=== PATIENT | female | born 1965 | race Caucasian/White ===

== ENCOUNTER 2019-09-23 12:32 | Emergency (ER) | payer MEDICAID ==
[~2019-09-23] VITALS: Ht 162.6 cm; Wt 183.0 kg
[~2019-09-23 12:32] MED LIST: CLON-528 PO; CYCL-394 PO; DEXL30CA3 PO; DOCU100C40 PO; ESCI20TA29 PO; ESTR0.3T10 PO; FAMO-128 PO; LEVO100T46 PO; MELO-82 PO; METF500T PO; METH60CP PO; MOME17SP NS; MONT10TA21 PO; PHEN-786 PO; TRAM50TA2 PO
[2019-09-23 12:35] VITALS: BP 140/97
[2019-09-23] MEDS ORDERED: triamcinolone acetonide 40mg/ml inj IM ONE (13:40)
[2019-09-23] MEDS ORDERED: KEN0.1O TP (13:44)
== END 2019-09-23 13:51 | disposition home or self-care (01) ==
LOC: ER 12:32
DX: S80.812A Abrasion, left lower leg, initial encounter (principal); S80.811A Abrasion, right lower leg, initial encounter; L30.9 Dermatitis, unspecified; R06.02 Shortness of breath; E11.9 Type 2 diabetes mellitus without complications; G89.29 Other chronic pain; E05.80 Other thyrotoxicosis without thyrotoxic crisis or storm; Z86.2 Personal history of diseases of the blood and blood-forming organs and certain disorders involving the immune mechanism; Z98.890 Other specified postprocedural states; Z91.018 Allergy to other foods; Z79.84 Long term (current) use of oral hypoglycemic drugs; Z79.899 Other long term (current) drug therapy; X58.XXXA Exposure to other specified factors, initial encounter; Y93.89 Activity, other specified; Y92.89 Other specified places as the place of occurrence of the external cause; Y99.8 Other external cause status
CPT/HCPCS: 96372; 99283; J3301

== ENCOUNTER 2019-09-28 19:31 | Emergency (ER) | payer MEDICAID ==
[~2019-09-28] VITALS: Ht 162.6 cm; Wt 89.0 kg
[~2019-09-28 19:31] MED LIST changes: +KEN0.1O TP
[2019-09-28] MEDS ORDERED: LORazepam 1 MG tablet PO ONE (20:10)
[2019-09-28] MEDS ORDERED: diphenhydrAMINE 25mg capsule PO ONE (20:10)
[2019-09-28] MEDS ORDERED: triamcinolone acetonide 40mg/ml inj IM ONE (21:00)
--- NOTE | 2019-09-28 21:13 | NUR ---
JASEN [phone]
[2019-09-28] MEDS ORDERED: DIPH25CA83 PO (21:26)
[2019-09-28 21:48] VITALS: BP 135/84
== END 2019-09-28 21:50 | disposition home or self-care (01) ==
LOC: ER 19:32
DX: L20.9 Atopic dermatitis, unspecified (principal); E11.9 Type 2 diabetes mellitus without complications; G89.29 Other chronic pain; F41.9 Anxiety disorder, unspecified; Z91.040 Latex allergy status; Z79.899 Other long term (current) drug therapy
CPT/HCPCS: 96372; 99283; J3301; Q0163

== ENCOUNTER 2020-07-25 15:22 | Emergency (ER) | payer MEDICAID ==
[~2020-07-25] VITALS: Ht 162.6 cm; Wt 75.5 kg
[~2020-07-25 15:22] MED LIST changes: +DIPH25CA83 PO; -KEN0.1O TP
[2020-07-25 16:10] LABS: BASOPHILS # (AUTO) 0.1 X10'3 (0-0.2); BASOPHILS % (AUTO) 1.4 % (0-1); EOSINOPHILS # (AUTO) 0.3 X10'3 (0-0.9); EOSINOPHILS % (AUTO) 5.2 % (0-6); HEMATOCRIT 31.6 % (35.0-45.0); HEMOGLOBIN 10.6 g/dl (12.0-16.0); LYMPHOCYTES # (AUTO) 1.7 X10'3 (1.1-4.8); MEAN CORPUSCULAR HEMOGLOBIN 28.8 PG (27.0-31.0); MEAN CORPUSCULAR HGB CONC 33.5 g/dL (33.0-36.5); MEAN CORPUSCULAR VOLUME 86.1 FL (78-98); MEAN PLATELET VOLUME 6.3 FL (7.4-10.4); MONOCYTES # (AUTO) 0.6 X10'3 (0-0.9); MONOCYTES % (AUTO) 9.4 % (2-12); NEUTROPHILS # (AUTO) 3.8 X10'3 (1.8-7.7); PLATELET COUNT 402 X10'3 (140-440); RED BLOOD COUNT 3.67 X10'6 (4.20-5.60); RED CELL DISTRIBUTION WIDTH 13.4 % (11.5-14.5); WHITE BLOOD COUNT 6.6 X10'3 (4.5-11.0)
[2020-07-25 16:26] LABS: ALANINE AMINOTRANSFERASE 27 U/L (12-78); ALBUMIN 3.3 G/DL (3.4-5.0); ALBUMIN/GLOBULIN RATIO 1.1 (1.1-1.5); ALKALINE PHOSPHATASE 69 IU/L (46-116); ANION GAP 7 (8-16); ASPARTATE AMINO TRANSFERASE 21 U/L (10-37); BILIRUBIN,TOTAL 0.2 MG/DL (0.1-1.0); BLOOD UREA NITROGEN 5 MG/DL (7-18); BUN/CREATININE RATIO 8.3 (6.6-38.0); CALCIUM 8.3 MG/DL (8.5-10.1); CHLORIDE 93 MMOL/L (99-107); GLUCOSE 80 MG/DL (70-104); POTASSIUM 3.5 MMOL/L (3.5-5.1); SODIUM 128 MMOL/L (135-145); TOTAL CARBON DIOXIDE 28.4 MMOL/L (24-32); TOTAL PROTEIN 6.4 G/DL (6.4-8.2); eGFR > 90 ML/MIN
[2020-07-25 17:37] VITALS: BP 153/87
== END 2020-07-25 17:39 | disposition home or self-care (01) ==
LOC: ER 15:23
DX: R10.13 Epigastric pain (principal); R07.89 Other chest pain; E87.1 Hypo-osmolality and hyponatremia; I10 Essential (primary) hypertension; E11.9 Type 2 diabetes mellitus without complications; E05.90 Thyrotoxicosis, unspecified without thyrotoxic crisis or storm; G89.29 Other chronic pain; F41.9 Anxiety disorder, unspecified; Z86.2 Personal history of diseases of the blood and blood-forming organs and certain disorders involving the immune mechanism; Z98.890 Other specified postprocedural states; Z91.040 Latex allergy status; Z79.899 Other long term (current) drug therapy
CPT/HCPCS: 36415; 71045; 80053; 83880; 84484; 85025; 93005; 99285

== ENCOUNTER 2020-09-28 15:32 | Emergency (ER) | payer MEDICAID ==
[~2020-09-28] VITALS: Ht 165.1 cm; Wt 72.0 kg
--- NOTE | 2020-09-28 15:50 | NUR ---
XRAYS ON HOLD UNTIL CT SCAN RESULTS PER DR ABRAHAM
--- NOTE | 2020-09-28 15:55 | NUR ---
TO [facility] W/ JANY BHANDARI ACCOMPANYING
[2020-09-28 16:04] LABS: BASOPHILS # (AUTO) 0.1 X10'3 (0-0.2); BASOPHILS % (AUTO) 0.9 % (0-1); EOSINOPHILS # (AUTO) 0.2 X10'3 (0-0.9); EOSINOPHILS % (AUTO) 2.3 % (0-6); HEMATOCRIT 32.6 % (35.0-45.0); HEMOGLOBIN 11.1 g/dl (12.0-16.0); LYMPHOCYTES # (AUTO) 1.5 X10'3 (1.1-4.8); LYMPHOCYTES % (AUTO) 21.6 % (21-51); MEAN CORPUSCULAR HGB CONC 34.1 g/dL (33.0-36.5); MEAN CORPUSCULAR VOLUME 85.1 FL (78-98); MEAN PLATELET VOLUME 6.8 FL (7.4-10.4); MONOCYTES # (AUTO) 0.6 X10'3 (0-0.9); MONOCYTES % (AUTO) 8.5 % (2-12); NEUTROPHILS # (AUTO) 4.8 X10'3 (1.8-7.7); NEUTROPHILS % (AUTO) 66.7 % (42-75); PLATELET COUNT 328 X10'3 (140-440); RED BLOOD COUNT 3.84 X10'6 (4.20-5.60); RED CELL DISTRIBUTION WIDTH 13.2 % (11.5-14.5); WHITE BLOOD COUNT 7.2 X10'3 (4.5-11.0)
[2020-09-28 16:14] LABS: PARTIAL THROMBOPLASTIN TIME 27 SECONDS (22-32)
[2020-09-28 16:16] LABS: ALANINE AMINOTRANSFERASE 35 U/L (12-78); ALBUMIN 3.3 G/DL (3.4-5.0); ALKALINE PHOSPHATASE 92 IU/L (46-116); ANION GAP 12 (8-16); ASPARTATE AMINO TRANSFERASE 28 U/L (10-37); BILIRUBIN,TOTAL 0.2 MG/DL (0.1-1.0); BLOOD UREA NITROGEN 6 MG/DL (7-18); BUN/CREATININE RATIO 8.1 (6.6-38.0); CALCIUM 8.3 MG/DL (8.5-10.1); CHLORIDE 88 MMOL/L (99-107); CREATININE 0.74 MG/DL (0.40-0.90); GLUCOSE 97 MG/DL (70-104); POTASSIUM 3.9 MMOL/L (3.5-5.1); SODIUM 122 MMOL/L (135-145); TOTAL CARBON DIOXIDE 22.3 MMOL/L (24-32); TOTAL PROTEIN 6.7 G/DL (6.4-8.2); eGFR 82 ML/MIN
--- NOTE | 2020-09-28 16:21 | NUR ---
Discussed pt's c/o pain with edmd hernandez; new order for zofran, morphine and ns bolus received.
[2020-09-28 16:25] LABS: CREATINE KINASE 102 U/L (26-192); TROPONIN I < 0.04 NG/ML (0.0-0.05)
[2020-09-28] MEDS ORDERED: ondansetron/PF 4mg/2ml inj IV ONE (16:25)
[2020-09-28] MEDS ORDERED: morphine 4 MG/ML inj SYRINge IV ONE ×2 (16:25→17:50)
[2020-09-28] MEDS ORDERED: normal saline 1000ml 1,000 ML IV ONE (16:25)
--- NOTE | 2020-09-28 16:35 | NUR ---
ok to remove c-collar, per edmd hernandez. poc includes transfer to higher level of care
--- NOTE | 2020-09-28 16:37 | NUR ---
Pt requested her son, Andrew be contacted, but didn't have phone. called pt's mother Sandy who provided Andrew' number: [phone].
[2020-09-28] MEDS ORDERED: TETanus/Pertussis (Acell)/Diphther VAC/PF (Tdap-Adult) 0.5ml syringe IMVAC ONE (16:45)
[2020-09-28] MEDS ORDERED: LIDOcaine 1% W/epiNEPHrine 1:200,000 10ml vial IJ ONE (16:45)
[2020-09-28 17:45] VITALS: BP 176/100
--- NOTE | 2020-09-28 18:29 | NUR ---
Gave report to Neuroscience unit at [facility], understanding verbalized, no further questions at this time.
== END 2020-09-28 18:34 | disposition short-term general hospital (02) ==
LOC: ER 15:32
DX: S32.019A Unspecified fracture of first lumbar vertebra, initial encounter for closed fracture (principal); S01.91XA Laceration without foreign body of unspecified part of head, initial encounter; S13.4XXA Sprain of ligaments of cervical spine, initial encounter; S06.0X0A Concussion without loss of consciousness, initial encounter; R51.9 Headache, unspecified; R53.1 Weakness; D53.9 Nutritional anemia, unspecified; I10 Essential (primary) hypertension; E11.9 Type 2 diabetes mellitus without complications; E05.90 Thyrotoxicosis, unspecified without thyrotoxic crisis or storm; G89.29 Other chronic pain; F41.9 Anxiety disorder, unspecified; Z20.3 Contact with and (suspected) exposure to rabies; Z86.2 Personal history of diseases of the blood and blood-forming organs and certain disorders involving the immune mechanism; Z98.890 Other specified postprocedural states; Z91.040 Latex allergy status; Z79.899 Other long term (current) drug therapy; W11.XXXA Fall on and from ladder, initial encounter; Y93.89 Activity, other specified; Y92.89 Other specified places as the place of occurrence of the external cause; Y99.8 Other external cause status
CPT/HCPCS: 36415; 51702; 70450; 72125; 72128; 72131; 80053; 82550; 83874; 84484; 85025; 85610; 85730; 90471; 90715; 93005; 96361; 96374; 96375; 96376; 99291; J2270; J2405; J7030

== ENCOUNTER 2021-03-27 18:25 | Emergency (ER) | payer MEDICAID ==
[~2021-03-27] VITALS: Ht 167.6 cm; Wt 67.3 kg
[2021-03-27] MEDS ORDERED: normal saline 1000ML IV soln IVB ONE (19:40)
[2021-03-27 20:10] LABS: CLARITY,URINE CLEAR (Clear); COLOR,URINE STRAW (Yellow); GLUCOSE, URINE NEGATIVE (Neg); KETONES,URINE NEGATIVE (Neg); LEUKOCYTE ESTERASE ,URINE NEGATIVE (Neg); NITRITES, URINE NEGATIVE (Neg); OCCULT BLOOD,URINE NEGATIVE (Neg); PROTEIN,URINE NEGATIVE (Neg); UA COLLECTION TYPE CLN CATCH MIDSTREAM; UROBILINOGEN,URINE 0.2 E.U/dL (0.2-1.0)
[2021-03-27 20:27] LABS: BASOPHILS # (AUTO) 0.1 X10'3 (0-0.2); BASOPHILS % (AUTO) 0.5 % (0-1); EOSINOPHILS # (AUTO) 0.1 X10'3 (0-0.9); EOSINOPHILS % (AUTO) 0.8 % (0-6); HEMATOCRIT 28.8 % (35.0-45.0); HEMOGLOBIN 9.5 g/dl (12.0-16.0); LYMPHOCYTES # (AUTO) 0.9 X10'3 (1.1-4.8); LYMPHOCYTES % (AUTO) 6.6 % (21-51); MEAN CORPUSCULAR HEMOGLOBIN 27.1 PG (27.0-31.0); MEAN CORPUSCULAR HGB CONC 33.1 g/dL (33.0-36.5); MEAN CORPUSCULAR VOLUME 81.7 FL (78-98); MEAN PLATELET VOLUME 6.5 FL (7.4-10.4); MONOCYTES % (AUTO) 7.3 % (2-12); NEUTROPHILS # (AUTO) 11.3 X10'3 (1.8-7.7); NEUTROPHILS % (AUTO) 84.8 % (42-75); PLATELET COUNT 370 X10'3 (140-440); RED BLOOD COUNT 3.52 X10'6 (4.20-5.60); RED CELL DISTRIBUTION WIDTH 17.2 % (11.5-14.5); WHITE BLOOD COUNT 13.3 X10'3 (4.5-11.0)
[2021-03-27 20:43] LABS: ALANINE AMINOTRANSFERASE 25 U/L (12-78); ALBUMIN 2.6 G/DL (3.4-5.0); ALBUMIN/GLOBULIN RATIO 0.7 (1.1-1.5); ALKALINE PHOSPHATASE 64 IU/L (46-116); ANION GAP 11 (8-16); ASPARTATE AMINO TRANSFERASE 22 U/L (10-37); BILIRUBIN,TOTAL 0.2 MG/DL (0.1-1.0); BLOOD UREA NITROGEN 11 MG/DL (7-18); BUN/CREATININE RATIO 14.9 (6.6-38.0); CALCIUM 7.5 MG/DL (8.5-10.1); CHLORIDE 93 MMOL/L (99-107); CREATININE 0.74 MG/DL (0.40-0.90); GLUCOSE 112 MG/DL (70-104); POTASSIUM 3.2 MMOL/L (3.5-5.1); SODIUM 127 MMOL/L (135-145); TOTAL PROTEIN 6.1 G/DL (6.4-8.2); eGFR 82 ML/MIN
[2021-03-27] MEDS ORDERED: potassium Cl 20 mEq SR tablet PO STA (20:46)
[2021-03-27 21:11] VITALS: BP 128/75
== END 2021-03-27 21:13 | disposition home or self-care (01) ==
LOC: ER 18:25
DX: E11.649 Type 2 diabetes mellitus with hypoglycemia without coma (principal); E87.0 Hyperosmolality and hypernatremia; E87.6 Hypokalemia; E86.0 Dehydration; R41.82 Altered mental status, unspecified; R53.83 Other fatigue; I10 Essential (primary) hypertension; E11.9 Type 2 diabetes mellitus without complications; E05.90 Thyrotoxicosis, unspecified without thyrotoxic crisis or storm; G89.29 Other chronic pain; Z86.2 Personal history of diseases of the blood and blood-forming organs and certain disorders involving the immune mechanism; Z98.890 Other specified postprocedural states; Z91.040 Latex allergy status; Z79.899 Other long term (current) drug therapy
CPT/HCPCS: 36415; 80053; 81003; 82948; 85025; 93005; 99284; J7030

== ENCOUNTER 2021-05-01 13:41 | Inpatient (IN) | payer MEDICAID ==
[~2021-05-01] VITALS: Ht 162.6 cm; Wt 75.2 kg
[~2021-05-01 13:41] MED LIST changes: -MOME17SP NS; +MOME17SP5 NS
[2021-05-01] MEDS ORDERED: FOSphenytoin 500mg inj. 1,000 MG in normal saline 100ml IV soln 80 ML IV ONE (15:10)
[2021-05-01] MEDS ORDERED: normal saline 1000ML IV soln IVB ONE (15:10)
[2021-05-01] MEDS ORDERED: LORazepam 2 mg/ml vial IV ONE ×2 (15:10→15:40)
[2021-05-01] MEDS ORDERED: FOSphenytoin 500mg inj. 1,000 MG in normal saline 100ml IV soln 100 ML IV ONE (15:26)
[2021-05-01 15:39] LABS: ALANINE AMINOTRANSFERASE 28 U/L (12-78); ALBUMIN 3.3 G/DL (3.4-5.0); ALBUMIN/GLOBULIN RATIO 0.8 (1.1-1.5); ALKALINE PHOSPHATASE 89 IU/L (46-116); ANION GAP 12 (8-16); ASPARTATE AMINO TRANSFERASE 33 U/L (10-37); BILIRUBIN,TOTAL 0.4 MG/DL (0.1-1.0); BLOOD UREA NITROGEN 4 MG/DL (7-18); BUN/CREATININE RATIO 5.3 (6.6-38.0); CALCIUM 7.5 MG/DL (8.5-10.1); CHLORIDE 65 MMOL/L (99-107); CREATININE 0.76 MG/DL (0.40-0.90); GLUCOSE 127 MG/DL (70-104); TOTAL PROTEIN 7.4 G/DL (6.4-8.2); eGFR 79 ML/MIN
[2021-05-01 15:46] LABS: POTASSIUM 1.7 MMOL/L (3.5-5.1); SODIUM 102 MMOL/L (135-145)
[2021-05-01 15:53] LABS: BASOPHILS % (AUTO) 0.4 % (0-1); EOSINOPHILS % (AUTO) 0.3 % (0-6); HEMATOCRIT 33.2 % (35.0-45.0); HEMOGLOBIN 11.2 g/dl (12.0-16.0); LYMPHOCYTES # (AUTO) 0.9 X10'3 (1.1-4.8); MEAN CORPUSCULAR HEMOGLOBIN 27.4 PG (27.0-31.0); MEAN CORPUSCULAR HGB CONC 33.8 g/dL (33.0-36.5); MEAN CORPUSCULAR VOLUME 80.9 FL (78-98); MEAN PLATELET VOLUME 7.7 FL (7.4-10.4); MONOCYTES # (AUTO) 0.7 X10'3 (0-0.9); MONOCYTES % (AUTO) 7.5 % (2-12); NEUTROPHILS # (AUTO) 7.4 X10'3 (1.8-7.7); NEUTROPHILS % (AUTO) 81.8 % (42-75); PLATELET COUNT 288 X10'3 (140-440); RED CELL DISTRIBUTION WIDTH 15.5 % (11.5-14.5); WHITE BLOOD COUNT 9.1 X10'3 (4.5-11.0)
[2021-05-01 15:56] LABS: URINE AMPHETAMINE SCREEN NEGATIVE (Neg); URINE BARBITUATE SCREEN NEGATIVE (Neg); URINE BENZODIAZEPINES SCREEN NEGATIVE (Neg); URINE CANNABINOID SCREEN NEGATIVE (Neg); URINE COCAINE SCREEN NEGATIVE (Neg); URINE METHADONE SCREEN NEGATIVE (Neg); URINE OPIATE SCREEN NEGATIVE (Neg); URINE PHENCYCLIDINE SCREEN NEGATIVE (Neg)
[2021-05-01 15:57] LABS: ETHANOL < 0.010 GM/DL (0.0-0.010)
[2021-05-01 15:57] LABS: CLARITY,URINE SLIGHTLY CLOUDY (Clear); GLUCOSE, URINE 100 mg/dl (Neg); KETONES,URINE NEGATIVE (Neg); LEUKOCYTE ESTERASE ,URINE NEGATIVE (Neg); NITRITES, URINE NEGATIVE (Neg); OCCULT BLOOD,URINE TRACE-INTACT (Neg); PROTEIN,URINE NEGATIVE (Neg); UROBILINOGEN,URINE 0.2 E.U/dL (0.2-1.0)
[2021-05-01 16:00] LABS: COLOR,URINE STRAW (Yellow); UA COLLECTION TYPE NON-SPECIFIED
[2021-05-01] MEDS ORDERED: sodium chloride 3% IV.soln 100 ML IV ONE (16:00)
[2021-05-01 16:03] LABS: SQUAMOUS EPITHELIAL CELL,UR MANY /LPF (FEW)
[2021-05-01 16:09] LABS: TRANSITIONAL EPI CELLS,URINE FEW /HPF; WBC,URINE 0-4 /HPF (0-4)
[2021-05-01 16:14] LABS: BACTERIA,URINE FEW /HPF (Neg)
[2021-05-01 16:44] LABS: MAGNESIUM 1.9 MG/DL (1.5-2.4)
[2021-05-01] MEDS ORDERED: LIOT5TAB10 PO (16:49)
[2021-05-01] MEDS ORDERED: ESTR1TAB28 PO (16:49)
[2021-05-01] MEDS ORDERED: DOCU-22 PO (16:49)
[2021-05-01] MEDS ORDERED: CHOL20002 PO (16:49)
[2021-05-01] MEDS ORDERED: LEVO100T9 PO (16:49)
[2021-05-01] MEDS ORDERED: FERR-106 PO (16:49)
[2021-05-01] MEDS ORDERED: CHLO25TA10 PO (16:49)
[2021-05-01] MEDS ORDERED: CELE-85 PO (16:49)
[2021-05-01] MEDS ORDERED: AMIT50TA10 PO (16:49)
[2021-05-01] MEDS ORDERED: KEN0.1O TOP (16:49)
[2021-05-01] MEDS ORDERED: METH-797 PO (16:49)
[2021-05-01] MEDS ORDERED: METF-438 PO (16:49)
[2021-05-01] MEDS ORDERED: HYDR-3972 PO (16:49)
--- NOTE | 2021-05-01 16:49 | NUR ---
DR GALLOWAY @ BEDSIDE WITH DR VALLADARES
[2021-05-01] MEDS ORDERED: QUET100T34 PO ×2 (16:56)
[2021-05-01] MEDS ORDERED: ESTR0.5T PO (16:56)
[2021-05-01] MEDS ORDERED: ketamine 50 mg/ml 10ml vial IV ONE (17:05)
[2021-05-01] MEDS: potassium Cl 10 mEq/100mL bag IV SCH ×2 (17:23→18:59)
[2021-05-01] MEDS ORDERED: ondansetron/PF 4mg/2ml inj IV PRN (17:45)
[2021-05-01] MEDS ORDERED: potassium Cl 20 mEq SR tablet PO PRN ×2 (17:45)
[2021-05-01] MEDS ORDERED: magnesium 2GM in 50ml NS 50 ML IV PRN (17:45)
[2021-05-01] MEDS ORDERED: morphine 4 MG/ML inj SYRINge IV PRN (17:45)
[2021-05-01] MEDS ORDERED: acetaminophen 325mg tablet PO PRN ×2 (17:45)
[2021-05-01] MEDS ORDERED: LIDOcaine 2% 10ml TOPICAL JELLY (Urojet) TP ONE (17:45)
[2021-05-01] MEDS ORDERED: magnesium hydroxide 30ml (MOM) UD suspension PO PRN (17:45)
[2021-05-01] MEDS ORDERED: magnesium Cl slow-release 64mg tablet PO PRN (17:45)
[2021-05-01] MEDS ORDERED: morphine 2 MG/ML inj. syringe IV PRN (17:45)
--- NOTE | 2021-05-01 17:48 | NUR ---
DR. VALLADARES AT BEDSIDE TO PLACE QUAD LUMEN CENTRAL LINE RIGHT IJ.
[2021-05-01] MEDS: Potassium Cl inj 20 MEQ in normal saline 1000ml 990 ML IV SCH ×2 (18:00→20:56)
[2021-05-01] MEDS ORDERED: ondansetron/PF 4mg/2ml inj IV STA (18:10)
[2021-05-01] MEDS ORDERED: ketamine 50 mg/ml 10ml vial IV STA (18:10)
[2021-05-01 18:43] LABS: AMYLASE 156 U/L (25-115); LDL CHOLESTEROL 84 MG/DL (50-100); LIPASE 65 U/L (73-393)
--- NOTE | 2021-05-01 18:45 | NUR ---
1800ml yellow colored urine out from temp gutierrez.
[2021-05-01 19:06] LABS: OSMOLALITY 220 MOSM/K (280-300)
--- NOTE | 2021-05-01 19:56 | NUR ---
kcl not available at this time,called Macario/pharmacist,made aware that patient is going to .
[2021-05-01 19:58] LABS: ALANINE AMINOTRANSFERASE 25 U/L (12-78); ALBUMIN 3.2 G/DL (3.4-5.0); ALBUMIN/GLOBULIN RATIO 0.9 (1.1-1.5); ALKALINE PHOSPHATASE 86 IU/L (46-116); ANION GAP 9 (8-16); ASPARTATE AMINO TRANSFERASE 29 U/L (10-37); BILIRUBIN,TOTAL 0.5 MG/DL (0.1-1.0); BLOOD UREA NITROGEN 5 MG/DL (7-18); CALCIUM 7.7 MG/DL (8.5-10.1); CHLORIDE 73 MMOL/L (99-107); GLUCOSE 125 MG/DL (70-104); MAGNESIUM 1.8 MG/DL (1.5-2.4); PHOSPHORUS 3.1 MG/DL (2.3-4.5); TOTAL PROTEIN 6.8 G/DL (6.4-8.2); eGFR > 90 ML/MIN
[2021-05-01 20:03] LABS: SODIUM 110 MMOL/L (135-145)
[2021-05-01] MEDS: potassium Cl 20mEq/100mL bag 100 ML IV PRN ×3 (20:45→23:46)
[2021-05-01] MEDS: dexmedetomidin/NS 400mcg/100ml 100 ML IV SCH (20:52)
[2021-05-01] MEDS ORDERED: Potassium Cl inj 40 MEQ in normal saline 250ml IV soln 250 ML IV SCH (21:00)
[2021-05-01] MEDS: LORazepam 2 mg/ml vial IV PRN (21:06)
[2021-05-01 21:36] LABS: CREATINE KINASE 166 U/L (26-192)
[2021-05-01] MEDS ORDERED: potassium Cl 20mEq in NS 1,000 ML IV SCH (21:40)
[2021-05-01 21:47] LABS: ABG BASE EXCESS 3.3 mmol/L (-2.0-2.0); ABG HCO3 25.1 mmol/L (22.0-26.0); ABG OXYGEN SATURATION 97.3 % (94-97); ABG PCO2 (T) 28.8 mmHg (32.0-45.0); ABG PO2 (T) 90.4 mmHg (75.0-100.0); FCOHb 0.1 % (0.0-3.9); FMetHb 0.2 % (0.0-1.5); PATIENT TEMPERATURE 36.8; TOTAL HEMOGLOBIN 11.4 G/dl (12.0-16.0)
[2021-05-01 22:00] VITALS: BP 116/64
[2021-05-01] MEDS: heparin, porcine 5000 units/ml vial SQ SCH (22:22)
[2021-05-01 23:00] VITALS: BP 119/75
[2021-05-01 23:27] LABS: POTASSIUM 2.5 MMOL/L (3.5-5.1)
[2021-05-02] VITALS (25 sets, daily range): BP systolic 94–123; BP diastolic 59–74
[2021-05-02] MEDS: potassium Cl 20mEq/100mL bag 100 ML IV PRN ×3 (00:49→05:11)
--- NOTE | 2021-05-02 01:07 | NUR ---
56 yo female, full code, Allergy to Latex and per the pt's sister GRETCHEN PIERCE. Bilateral soft wrist restraints, documentation and orders in accordance with facility policies and procedures. This is 56 year old patient lives with her mother and per report of the mother the patient has been "out of it" since having back surgery. Patient's mother is unsure of whether or not the patient is having seizures or not but notes that she will have "episodes" where she appears very altered and unresponsive. Patient has been evaluated by her PCP who notes that these episodes may be related to her medications. EMS notes that the patient was altered with a GCS of 11 when they arrived. There was obvious tongue trauma. They attempted to place an IV but the patient was combative and they were unsuccessful. Patient has a known history of diabetes and had a blood sugar of 130. Unable to obtain complete HPI information secondary to the patient's altered mental status. She was found to have Na of 103 and K of 1.7. She immediately received 150 ml of 3% Saline as ivpb when I arrived. Just learnt about her severe hypokalemia. NO histoyr of alcoholism. Urine drug screen negative. Not sure if she is ingesting any diuretics or laxatives surreptitiously. I have asked for her SErum Osmolarity, Urine osm, Urine sodium, urine potassium, urine chloride, to calculate urine anion gap, and to find out about isotonic vs hypotonic / isovolemic vs hypovolemic hyponatremia and channelize the treatment. She is going to icu soon. has placed a central line to facilitate rapid correction of potassium, while cautiously approaching the sodium correction, with a target of Na less than 10 meq over the next 24 hours. If needed based on cheryl correction, will consider DDAVP as well to avoid rapid correction of sodium. She will be monitored in icu for any further seizures. Tehre is a report of 60mg per day of SSRI Escitalopram which is a very high dose. This can cause hyponatremia as well. I am not able to find anything that can drop the potassium this low. She is also malnourished with albumin of 3.3. There sure looks like a history of chronic hyponatremia to as low as 122. NO obvious thiazide diuretic on board. Currently, pt is on ICU, Serum Sodium 103, afebrile, restless, agitated, started on Precedex gtt, neuro check Q 4 hours, remains confused, non verbal, follows no commands, moves all extremities, pupils PEARLA. Pupils 3 brisk. No seizure activity noted; at this time. Pt is more sedated and relaxed at this time with the Precedex infusion. ativan for seizure activity. HR 56 SB minimal ectopy, continue to monitor K+ and NA+. KCL infusing, then check serum levels per Dr Chávez. BP 112/67 good pulses no edema. Heparin SQ for DVT prophylaxis. IVF infusing via RIJ QLC. all ports f/p, good blood return, dressing reinforced. Breath sounds clear, non labored, equal symmetrical. Pulse ox 100% on 1 L oxygen NC. Hypoactive bowel sounds, soft non tender, non distended. remains NPO due to AMS. Protonix for GI prophylaxis. Glucose checks Q 6 hours. LBM 05/01/2021. Bladder non distended, Saunders draining clear yellow urine. skin intact. Pt remains safe. Continue to monitor serum NA+ and K+. Family updated. Addendum: 05/02/21 at 0517 by Carmelo Bernard RN Potassium 3.5. Dr Garcia ordered KCL 40 meq one more time. This totals 130 meq KCL IV given since admission to ICU. Pt waking up, able to speak words not full sentences. Pt stated she was home. then fell asleep. Precedex continues infusion at .2 mcgs. Next NA+/ K+ level post potassium infusion. Pt remains in bilateral soft wrist restraints till fully awake and following commands. Saunders drained 1700 ml cyu.
[2021-05-02 02:54] LABS: BASOPHILS % (AUTO) 0.1 % (0-1); EOSINOPHILS # (AUTO) 0.1 X10'3 (0-0.9); EOSINOPHILS % (AUTO) 0.8 % (0-6); HEMATOCRIT 30.1 % (35.0-45.0); HEMOGLOBIN 10.4 g/dl (12.0-16.0); LYMPHOCYTES # (AUTO) 0.9 X10'3 (1.1-4.8); LYMPHOCYTES % (AUTO) 9.9 % (21-51); MEAN CORPUSCULAR HEMOGLOBIN 27.6 PG (27.0-31.0); MEAN CORPUSCULAR HGB CONC 34.6 g/dL (33.0-36.5); MEAN CORPUSCULAR VOLUME 79.7 FL (78-98); MEAN PLATELET VOLUME 6.9 FL (7.4-10.4); MONOCYTES # (AUTO) 1.1 X10'3 (0-0.9); MONOCYTES % (AUTO) 11.7 % (2-12); NEUTROPHILS # (AUTO) 7.1 X10'3 (1.8-7.7); NEUTROPHILS % (AUTO) 77.5 % (42-75); PLATELET COUNT 375 X10'3 (140-440); RED BLOOD COUNT 3.78 X10'6 (4.20-5.60); RED CELL DISTRIBUTION WIDTH 15.4 % (11.5-14.5); WHITE BLOOD COUNT 9.1 X10'3 (4.5-11.0)
[2021-05-02 03:02] LABS: ALANINE AMINOTRANSFERASE 24 U/L (12-78); ALBUMIN 2.9 G/DL (3.4-5.0); ALBUMIN/GLOBULIN RATIO 0.9 (1.1-1.5); ALKALINE PHOSPHATASE 80 IU/L (46-116); ANION GAP 5 (8-16); ASPARTATE AMINO TRANSFERASE 28 U/L (10-37); BILIRUBIN,TOTAL 0.4 MG/DL (0.1-1.0); BLOOD UREA NITROGEN 5 MG/DL (7-18); BUN/CREATININE RATIO 10.9 (6.6-38.0); CALCIUM 7.7 MG/DL (8.5-10.1); CHLORIDE 77 MMOL/L (99-107); CREATININE 0.46 MG/DL (0.40-0.90); GLUCOSE 101 MG/DL (70-104); POTASSIUM 3.5 MMOL/L (3.5-5.1); TOTAL CARBON DIOXIDE 29.4 MMOL/L (24-32); TOTAL PROTEIN 6.3 G/DL (6.4-8.2); eGFR > 90 ML/MIN
[2021-05-02 03:35] LABS: SODIUM 111 MMOL/L (135-145)
[2021-05-02] MEDS: K and/or MAG REPLACEMENT MC SCH (08:00)
[2021-05-02 08:21] LABS: POTASSIUM 3.1 MMOL/L (3.5-5.1)
[2021-05-02] MEDS ORDERED: sodium chloride 0.45% 1,000 ML IV SCH (09:30)
[2021-05-02] MEDS: pantoprazole IV 40 MG in dextrose 5%-water 100 ML IV SCH (09:42)
[2021-05-02] MEDS: heparin, porcine 5000 units/ml vial SQ SCH ×2 (09:43→21:14)
[2021-05-02] MEDS: dexmedetomidin/NS 400mcg/100ml 100 ML IV SCH ×2 (09:45→21:17)
[2021-05-02] MEDS: levetiracetam inj 500 MG in normal saline 100ml IV soln 100 ML IV SCH ×2 (09:46→10:06)
[2021-05-02 11:15] LABS: HEMOGLOBIN A1C 5.4 % (4.5-6.2)
[2021-05-02 11:30] LABS: POTASSIUM 2.2 MMOL/L (3.5-5.1)
[2021-05-02] MEDS ORDERED: HYDROcodone/acetaminophen 10/325mg tab PO PRN (11:40)
[2021-05-02] MEDS ORDERED: folic acid 1mg/0.2ml inj IV ONE (12:00)
[2021-05-02] MEDS ORDERED: thiamine 100mg/ml 2ml inj. IV ONE (12:00)
[2021-05-02 12:18] LABS: POTASSIUM 2.8 MMOL/L (3.5-5.1)
[2021-05-02] MEDS ORDERED: dextrose 5%-1/2 normal saline 1,000 ML IV SCH ×2 (12:35→13:35)
[2021-05-02] MEDS ORDERED: dextrose 5%-water 1,000 ML IV SCH (12:40)
[2021-05-02] MEDS ORDERED: POTASSIUM BICARB 20meq eff tab 20 MEQ TABLET.EFF PO PRN (13:02)
[2021-05-02] MEDS: POTASSIUM BICARB 20meq eff tab 20 MEQ TABLET.EFF PO PRN (13:58)
[2021-05-02] MEDS: triamcinolone acet 0.1% cream 15gm TP SCH ×2 (14:05→21:15)
[2021-05-02] MEDS: cyclobenzaprine 10mg tablet PO SCH ×2 (14:08→20:45)
[2021-05-02] MEDS: MULTIVIT-MIN/FERROUS GLUCONATE 9 MG/15 ML LIQUID PO SCH (14:08)
--- NOTE | 2021-05-02 14:10 | NUR ---
Initial: Pt admit DX ALOC, hyponatremia, hypokalemia, and seizure per MD. Serum Na 102 and K 1.7 on admit w/ Na up to 111 and K 3.1 this AM receiving replacement. Pt takes chlorthalidone at home possibly taking more than Rx per RN at rounds. Hx gastric sleeve w/ MCV WNL though to start thiamin, folic, MVI in case etoh hx per MD. Pt hx T2DM A1C 5.4 this admit taking metformin at home per EMR. Pt remains ALOC w/ TF consult initially in EMR however cancelled and pt pending HAND INSERTER OPERATOR BSS to determine if safe for PO vs needed NG feeds per RN. LBM 05/01 per EMR. Will monitor for nutrition intervention needs this admit. Rec: 1. advance diet per HAND INSERTER OPERATOR/MD recs to regular 2. IF unsafe PO vs poor PO intake hx w/ ALOC; consider NG feeds to meet needs 3. IF TF; Jevity 1.2 at 60ml/hr goal would provide 1440ml volume/day, 1728 kcals, 1166ml water, and 86g protein. 4. IF TF; additional water per MD recs given critically low serum Na 111 this AM 5. routine bowel care 6. weekly wts Addendum: 05/02/21 at [address] Amended: Links added.
[2021-05-02] MEDS ORDERED: sodium chloride 3% IV.soln 100 ML IV ONE (15:35)
[2021-05-02] MEDS: sodium chloride 0.45% 1,000 ML IV SCH (16:22)
[2021-05-02] MEDS: metFORMIN 500mg tablet PO SCH (20:00)
[2021-05-02] MEDS: docusate sod 100mg capsule PO SCH (20:00)
[2021-05-02] MEDS: ferrous sulfate 325mg tablet PO SCH (20:00)
[2021-05-02] MEDS ORDERED: amitriptyline 25mg tablet PO SCH (21:00)
[2021-05-02 21:47] LABS: TOTAL PROTEIN,URINE RANDOM 26.9 MG/DL
[2021-05-02 21:52] LABS: CHLORIDE,URINE RANDOM < 50 MEQ/L; SODIUM,URINE RANDOM < 15 MEQ/L
[2021-05-02 22:50] LABS: POTASSIUM 2.8 MMOL/L (3.5-5.1)
[2021-05-03] VITALS (20 sets, daily range): BP systolic 91–157; BP diastolic 49–79
--- NOTE | 2021-05-03 02:32 | NUR ---
56 yo female, full code, Allergy to Latex and per the pt's sister GRETCHEN PIERCE. Bilateral soft wrist restraints, documentation and orders in accordance with facility policies and procedures. This is 56 year old patient lives with her mother and per report of the mother the patient has been "out of it" since having back surgery. Patient's mother is unsure of whether or not the patient is having seizures or not but notes that she will have "episodes" where she appears very altered and unresponsive. Patient has been evaluated by her PCP who notes that these episodes may be related to her medications. EMS notes that the patient was altered with a GCS of 11 when they arrived. There was obvious tongue trauma. They attempted to place an IV but the patient was combative and they were unsuccessful. Patient has a known history of diabetes and had a blood sugar of 130. Unable to obtain complete HPI information secondary to the patient's altered mental status. She was found to have Na of 103 and K of 1.7. She immediately received 150 ml of 3% Saline as ivpb when I arrived. Just learnt about her severe hypokalemia. NO histoyr of alcoholism. Urine drug screen negative. Not sure if she is ingesting any diuretics or laxatives surreptitiously. I have asked for her SErum Osmolarity, Urine osm, Urine sodium, urine potassium, urine chloride, to calculate urine anion gap, and to find out about isotonic vs hypotonic / isovolemic vs hypovolemic hyponatremia and channelize the treatment. She is going to icu soon. has placed a central line to facilitate rapid correction of potassium, while cautiously approaching the sodium correction, with a target of Na less than 10 meq over the next 24 hours. If needed based on cheryl correction, will consider DDAVP as well to avoid rapid correction of sodium. She will be monitored in icu for any further seizures. Tehre is a report of 60mg per day of SSRI Escitalopram which is a very high dose. This can cause hyponatremia as well. I am not able to find anything that can drop the potassium this low. She is also malnourished with albumin of 3.3. There sure looks like a history of chronic hyponatremia to as low as 122. NO obvious thiazide diuretic on board. Currently, pt is on ICU, Serum Sodium 121, afebrile, restless at times, confused able to reorient well. Precedex infusing at .5mcgs. Neuro check Q 4 hours, following simple commands, moves all extremities, pupils PEARLA. Pupils 3 brisk. No seizure activity noted. Pt is more sedated and relaxed. HR 56 SB minimal ectopy, continue to monitor and NA+. BP 112/67 good pulses no edema. Heparin SQ for DVT prophylaxis. IVF infusing via RIJ QLC. all ports f/p, good blood return, dressing reinforced. Breath sounds clear, non labored, equal symmetrical. Pulse ox 100% on 1 L oxygen NC. Hypoactive bowel sounds, soft non tender, non distended. remains NPO due to AMS, despite neuro assessment, continued lethargy. Protonix for GI prophylaxis. Glucose checks Q 6 hours. LBM 05/01/2021. Bladder non distended, Saunders draining clear yellow urine. skin intact. Pt remains safe. Continue to monitor serum NA+ and K+. Family updated. Addendum: 05/03/21 at 0239 by Carmelo Bernard RN Sodium 121, stopped .45NS at 2200. Dr Cabral aware.
[2021-05-03 03:15] LABS: BASOPHILS % (AUTO) 0.2 % (0-1); EOSINOPHILS # (AUTO) 0.1 X10'3 (0-0.9); EOSINOPHILS % (AUTO) 1.6 % (0-6); HEMATOCRIT 30.9 % (35.0-45.0); HEMOGLOBIN 10.4 g/dl (12.0-16.0); LYMPHOCYTES % (AUTO) 13.4 % (21-51); MEAN CORPUSCULAR HEMOGLOBIN 27.4 PG (27.0-31.0); MEAN CORPUSCULAR HGB CONC 33.6 g/dL (33.0-36.5); MEAN CORPUSCULAR VOLUME 81.5 FL (78-98); MEAN PLATELET VOLUME 7.5 FL (7.4-10.4); MONOCYTES # (AUTO) 0.8 X10'3 (0-0.9); MONOCYTES % (AUTO) 11.3 % (2-12); NEUTROPHILS # (AUTO) 5.4 X10'3 (1.8-7.7); NEUTROPHILS % (AUTO) 73.5 % (42-75); PLATELET COUNT 342 X10'3 (140-440); RED BLOOD COUNT 3.79 X10'6 (4.20-5.60); RED CELL DISTRIBUTION WIDTH 15.8 % (11.5-14.5); WHITE BLOOD COUNT 7.4 X10'3 (4.5-11.0)
[2021-05-03 03:34] LABS: ALANINE AMINOTRANSFERASE 26 U/L (12-78); ALBUMIN 2.8 G/DL (3.4-5.0); ALBUMIN/GLOBULIN RATIO 0.8 (1.1-1.5); ALKALINE PHOSPHATASE 82 IU/L (46-116); ANION GAP 8 (8-16); ASPARTATE AMINO TRANSFERASE 29 U/L (10-37); BILIRUBIN,TOTAL 0.3 MG/DL (0.1-1.0); BLOOD UREA NITROGEN 9 MG/DL (7-18); BUN/CREATININE RATIO 14.5 (6.6-38.0); CHLORIDE 86 MMOL/L (99-107); CREATININE 0.62 MG/DL (0.40-0.90); GLUCOSE 89 MG/DL (70-104); MAGNESIUM 2.2 MG/DL (1.5-2.4); PHOSPHORUS 2.9 MG/DL (2.3-4.5); SODIUM 121 MMOL/L (135-145); TOTAL CARBON DIOXIDE 27.2 MMOL/L (24-32); TOTAL PROTEIN 6.2 G/DL (6.4-8.2); eGFR > 90 ML/MIN
[2021-05-03 03:55] LABS: POTASSIUM 2.8 MMOL/L (3.5-5.1)
[2021-05-03 05:07] LABS: POTASSIUM 2.8 MMOL/L (3.5-5.1)
[2021-05-03] MEDS: sodium chloride 0.45% 1,000 ML IV SCH (05:43)
[2021-05-03] MEDS: levoTHYROXINE 100mcg tablet PO SCH (08:00)
[2021-05-03] MEDS: cholecalciferol (vitamin D3) 1,000 unit (25mcg) tablet PO SCH (08:00)
[2021-05-03] MEDS: triamcinolone acet 0.1% cream 15gm TP SCH ×3 (08:00→20:18)
[2021-05-03] MEDS: K and/or MAG REPLACEMENT MC SCH (08:00)
[2021-05-03] MEDS: MULTIVIT-MIN/FERROUS GLUCONATE 9 MG/15 ML LIQUID PO SCH (08:50)
[2021-05-03] MEDS: docusate sod 100mg capsule PO SCH ×2 (08:51→19:52)
[2021-05-03] MEDS: cyclobenzaprine 10mg tablet PO SCH ×3 (08:51→20:17)
[2021-05-03] MEDS: thiamine 100mg tablet PO SCH (08:51)
[2021-05-03] MEDS: ferrous sulfate 325mg tablet PO SCH ×2 (08:51→19:52)
[2021-05-03] MEDS: metFORMIN 500mg tablet PO SCH ×2 (08:51→19:52)
[2021-05-03] MEDS: folic acid 1mg tablet PO SCH (08:51)
[2021-05-03] MEDS: POTASSIUM BICARB 20meq eff tab 20 MEQ TABLET.EFF PO PRN (08:52)
[2021-05-03] MEDS: pantoprazole IV 40 MG in dextrose 5%-water 100 ML IV SCH (08:54)
[2021-05-03] MEDS: liothyronine sod 5mcg tablet PO SCH (08:55)
[2021-05-03] MEDS: estradiol 1mg tablet PO SCH (08:56)
[2021-05-03] MEDS: levetiracetam inj 500 MG in normal saline 100ml IV soln 100 ML IV SCH ×2 (08:59→19:51)
[2021-05-03] MEDS: heparin, porcine 5000 units/ml vial SQ SCH ×2 (09:06→19:52)
[2021-05-03] MEDS: potassium Cl 20 mEq/100mL bag IV SCH ×3 (11:00→13:30)
[2021-05-03] MEDS ORDERED: potassium Cl 20 mEq SR tablet PO ONE (11:30)
[2021-05-03] MEDS: potassium Cl 20mEq/100mL bag 100 ML IV SCH ×2 (11:30→12:30)
[2021-05-03] MEDS: dexmedetomidin/NS 400mcg/100ml 100 ML IV SCH (11:36)
[2021-05-03] MEDS: sodium chloride 1gm tablet PO SCH ×2 (12:00→17:00)
[2021-05-03 17:20] LABS: POTASSIUM 3.8 MMOL/L (3.5-5.1)
[2021-05-03] MEDS ORDERED: bisacodyl 10mg suppository rectal RC PRN (17:45)
--- NOTE | 2021-05-03 20:59 | NUR ---
Pt afebrile, AAO times 4 CHU, follows all commands, unsteady gait, pt transferred to 3014. report called to RN. informed her to draw sodium and potassium at 2200. if NA+ greater than 5 more than last sodium (last sodium 126) to hold midnight salt tab. RN also notified to give the patient her Elavil. medication was not available in ICU and message was sent to pharmacy. Glucose was 51 pt was given crackers and juice repeat glucose was 88.
[2021-05-03] MEDS: amitriptyline 50mg tablet PO SCH (22:18)
[2021-05-03 23:32] LABS: POTASSIUM 3.5 MMOL/L (3.5-5.1)
[2021-05-04] MEDS ORDERED: dextrose 50%-water 50ml dispensing syringe IV ONE (04:02)
[2021-05-04] MEDS: sodium chloride 1gm tablet PO SCH ×3 (04:08→21:14)
--- NOTE | 2021-05-04 06:30 | NUR ---
Patient in room PCU 3014. I have received report from ELISABET Camilo and had the opportunity to ask questions and assume patient care.
[2021-05-04 08:29] VITALS: BP 132/67
[2021-05-04 09:08] LABS: BASOPHILS % (AUTO) 0.5 % (0-1); EOSINOPHILS # (AUTO) 0.1 X10'3 (0-0.9); HEMATOCRIT 30.2 % (35.0-45.0); HEMOGLOBIN 10.4 g/dl (12.0-16.0); LYMPHOCYTES % (AUTO) 11.9 % (21-51); MEAN CORPUSCULAR HEMOGLOBIN 28.2 PG (27.0-31.0); MEAN CORPUSCULAR HGB CONC 34.4 g/dL (33.0-36.5); MEAN CORPUSCULAR VOLUME 81.9 FL (78-98); MEAN PLATELET VOLUME 7.5 FL (7.4-10.4); MONOCYTES % (AUTO) 12.5 % (2-12); NEUTROPHILS # (AUTO) 6.1 X10'3 (1.8-7.7); NEUTROPHILS % (AUTO) 74.1 % (42-75); PLATELET COUNT 373 X10'3 (140-440); RED BLOOD COUNT 3.68 X10'6 (4.20-5.60); RED CELL DISTRIBUTION WIDTH 15.7 % (11.5-14.5); WHITE BLOOD COUNT 8.3 X10'3 (4.5-11.0)
[2021-05-04 09:34] LABS: ALANINE AMINOTRANSFERASE 40 U/L (12-78); ALBUMIN 2.8 G/DL (3.4-5.0); ALBUMIN/GLOBULIN RATIO 0.8 (1.1-1.5); ALKALINE PHOSPHATASE 81 IU/L (46-116); ANION GAP 9 (8-16); ASPARTATE AMINO TRANSFERASE 27 U/L (10-37); BILIRUBIN,TOTAL 0.2 MG/DL (0.1-1.0); BLOOD UREA NITROGEN 7 MG/DL (7-18); BUN/CREATININE RATIO 11.7 (6.6-38.0); CALCIUM 8.2 MG/DL (8.5-10.1); CHLORIDE 94 MMOL/L (99-107); GLUCOSE 87 MG/DL (70-104); PHOSPHORUS 2.3 MG/DL (2.3-4.5); POTASSIUM 3.2 MMOL/L (3.5-5.1); SODIUM 129 MMOL/L (135-145); TOTAL CARBON DIOXIDE 25.7 MMOL/L (24-32); TOTAL PROTEIN 6.5 G/DL (6.4-8.2); eGFR > 90 ML/MIN
[2021-05-04] MEDS: docusate sod 100mg capsule PO SCH ×2 (09:57→21:16)
[2021-05-04] MEDS: cyclobenzaprine 10mg tablet PO SCH ×3 (09:57→21:15)
[2021-05-04] MEDS: folic acid 1mg tablet PO SCH (09:57)
[2021-05-04] MEDS: cholecalciferol (vitamin D3) 1,000 unit (25mcg) tablet PO SCH (09:57)
[2021-05-04] MEDS: lansoprazole 15mg solutab PO SCH (09:57)
[2021-05-04] MEDS: levoTHYROXINE 100mcg tablet PO SCH (09:58)
[2021-05-04] MEDS: thiamine 100mg tablet PO SCH (09:58)
[2021-05-04] MEDS: metFORMIN 500mg tablet PO SCH (09:58)
[2021-05-04] MEDS: MULTIVIT-MIN/FERROUS GLUCONATE 9 MG/15 ML LIQUID PO SCH (09:58)
[2021-05-04] MEDS: ferrous sulfate 325mg tablet PO SCH ×2 (09:58→21:15)
[2021-05-04] MEDS: liothyronine sod 5mcg tablet PO SCH (09:58)
[2021-05-04] MEDS: triamcinolone acet 0.1% cream 15gm TP SCH ×3 (09:59→21:17)
[2021-05-04] MEDS: heparin, porcine 5000 units/ml vial SQ SCH ×2 (09:59→21:15)
[2021-05-04 10:00] VITALS: BP 144/76
[2021-05-04] MEDS: K and/or MAG REPLACEMENT MC SCH ×2 (10:13→20:00)
[2021-05-04] MEDS ORDERED: magnesium Cl slow-release 64mg tablet PO PRN (10:55)
[2021-05-04] MEDS ORDERED: magnesium 4gm in 100ml NS 100 ML IV PRN (10:55)
[2021-05-04] MEDS ORDERED: magnesium 2GM in 50ml NS 50 ML IV PRN (10:55)
[2021-05-04] MEDS ORDERED: potassium CL 10mEq/100ml bag 100 ML IV PRN (10:55)
[2021-05-04] MEDS ORDERED: potassium Cl 20 mEq SR tablet PO PRN (10:55)
[2021-05-04] MEDS: estradiol 1mg tablet PO SCH (11:18)
[2021-05-04] MEDS: potassium Cl 20 mEq SR tablet PO PRN ×3 (11:18→21:14)
[2021-05-04] MEDS ORDERED: glucagon, human recombinant 1mg kit SUBCUT PRN (12:15)
[2021-05-04] MEDS ORDERED: dextrose 50%-water 50ml dispensing syringe IV PRN ×2 (12:15)
[2021-05-04] MEDS ORDERED: insulin Lispro (HumaLOG) vial - multi-dose SQ SCH (12:15)
[2021-05-04] MEDS ORDERED: dextrose ORAL solution 15 GM/59 ML bottle PO PRN ×2 (12:15)
--- NOTE | 2021-05-04 14:50 | NUR ---
Nutrition consult: No indication regarding reason for nutrition consult. Pt denied wt loss per malnutrition risk screen with RN. Noted h/o T2DM though well controlled with A1c 5.4%, DM education not warranted at this time. Pt with h/o gastric sleeve, currently receiving routine Thiamine, Folic acid, and MVM with iron. Pt receiving additional salt tabs with meals and serum Na slowly improving, currently up to 129 MMOL/L. No immediate nutrition concerns at this time. Pt s/p BSS 05/[address] recs mechanical soft chopped food with thin liquids however diet was advanced to regular consistency of food and liquids at f/u BSS today per ST recs. Pt documented with 25% PO intake at breakfast this morning with no other meals documented in EMR. LBM 05/03. Will continue to follow closely and make recommendations as appropriate pending further trends in PO intake. Recommendations: 1. Continue regular diet 2. Monitor need for ONS 3. Continue routine Thiamine, Folic acid, and MVM/iron 4. Routine bowel care 5. Weekly scaled weights Addendum: 05/04/21 at [address] Amended: Links added.
[2021-05-04 15:00] VITALS: BP 124/87
[2021-05-04 18:30] VITALS: BP 148/84
--- NOTE | 2021-05-04 18:30 | NUR ---
Problems reprioritized. Patient report given, questions answered & plan of care reviewed with ELISABET Hoang.
[2021-05-04] MEDS: LORazepam 2 mg/ml vial IV PRN (19:33)
[2021-05-04] MEDS ORDERED: insulin glargine (Lantus) pen - multi-dose SQ SCH (21:00)
[2021-05-04] MEDS: amitriptyline 50mg tablet PO SCH (21:14)
[2021-05-04] MEDS: levetiracetam 250mg tablet PO SCH (21:15)
[2021-05-04 22:30] VITALS: BP 139/72
[2021-05-05 02:30] VITALS: BP 114/71
[2021-05-05 06:00] VITALS: BP 128/77
[2021-05-05 06:49] LABS: BASOPHILS # (AUTO) 0.1 X10'3 (0-0.2); BASOPHILS % (AUTO) 1.1 % (0-1); EOSINOPHILS # (AUTO) 0.5 X10'3 (0-0.9); HEMATOCRIT 29.2 % (35.0-45.0); LYMPHOCYTES # (AUTO) 1.6 X10'3 (1.1-4.8); MEAN CORPUSCULAR HEMOGLOBIN 28.1 PG (27.0-31.0); MEAN CORPUSCULAR HGB CONC 34.1 g/dL (33.0-36.5); MEAN CORPUSCULAR VOLUME 82.4 FL (78-98); MEAN PLATELET VOLUME 6.9 FL (7.4-10.4); MONOCYTES # (AUTO) 0.7 X10'3 (0-0.9); MONOCYTES % (AUTO) 9.3 % (2-12); NEUTROPHILS # (AUTO) 4.3 X10'3 (1.8-7.7); NEUTROPHILS % (AUTO) 60.6 % (42-75); PLATELET COUNT 360 X10'3 (140-440); RED BLOOD COUNT 3.54 X10'6 (4.20-5.60); RED CELL DISTRIBUTION WIDTH 16.5 % (11.5-14.5); WHITE BLOOD COUNT 7.1 X10'3 (4.5-11.0)
[2021-05-05 07:08] LABS: ALANINE AMINOTRANSFERASE 31 U/L (12-78); ALBUMIN 2.8 G/DL (3.4-5.0); ALBUMIN/GLOBULIN RATIO 0.8 (1.1-1.5); ALKALINE PHOSPHATASE 77 IU/L (46-116); ANION GAP 8 (8-16); ASPARTATE AMINO TRANSFERASE 31 U/L (10-37); BILIRUBIN,TOTAL 0.2 MG/DL (0.1-1.0); BLOOD UREA NITROGEN 5 MG/DL (7-18); BUN/CREATININE RATIO 8.3 (6.6-38.0); CALCIUM 8.1 MG/DL (8.5-10.1); CHLORIDE 94 MMOL/L (99-107); GLUCOSE 88 MG/DL (70-104); MAGNESIUM 1.8 MG/DL (1.5-2.4); PHOSPHORUS 3.1 MG/DL (2.3-4.5); POTASSIUM 3.7 MMOL/L (3.5-5.1); SODIUM 128 MMOL/L (135-145); TOTAL CARBON DIOXIDE 25.6 MMOL/L (24-32); TOTAL PROTEIN 6.3 G/DL (6.4-8.2); eGFR > 90 ML/MIN
[2021-05-05] MEDS: lansoprazole 15mg solutab PO SCH (07:54)
[2021-05-05] MEDS: MULTIVIT-MIN/FERROUS GLUCONATE 9 MG/15 ML LIQUID PO SCH (07:55)
[2021-05-05] MEDS: levetiracetam 250mg tablet PO SCH (07:56)
[2021-05-05] MEDS: folic acid 1mg tablet PO SCH (07:56)
[2021-05-05] MEDS: cyclobenzaprine 10mg tablet PO SCH ×2 (07:56→13:45)
[2021-05-05] MEDS: ferrous sulfate 325mg tablet PO SCH (07:56)
[2021-05-05] MEDS: sodium chloride 1gm tablet PO SCH ×2 (07:56→13:44)
[2021-05-05] MEDS: thiamine 100mg tablet PO SCH (07:57)
[2021-05-05] MEDS: cholecalciferol (vitamin D3) 1,000 unit (25mcg) tablet PO SCH (07:57)
[2021-05-05] MEDS: triamcinolone acet 0.1% cream 15gm TP SCH ×2 (07:58→13:45)
[2021-05-05] MEDS: docusate sod 100mg capsule PO SCH (07:58)
[2021-05-05] MEDS: levoTHYROXINE 100mcg tablet PO SCH (07:58)
[2021-05-05] MEDS: heparin, porcine 5000 units/ml vial SQ SCH (07:58)
[2021-05-05] MEDS: liothyronine sod 5mcg tablet PO SCH ×2 (08:00→13:44)
[2021-05-05] MEDS: K and/or MAG REPLACEMENT MC SCH (08:00)
[2021-05-05] MEDS: estradiol 1mg tablet PO SCH (08:34)
--- NOTE | 2021-05-05 09:40 | NUR ---
pharmacy notified, pts medication "cytomel" not recognized by [facility].
--- NOTE | 2021-05-05 15:00 | NUR ---
pt discharged at 1500. iv removed tip intact no complications. belongings sent with pt. familyh and pt educated on d/c plan and follow up instructions. pt discharged in stable condition to home.
== END 2021-05-05 15:11 | disposition home or self-care (01) | DRG 53 ==
LOC: ER 13:42 → ED HOLD 17:52 → ICU 2S 19:26 → PCU 3S 05-03 20:00
PROVIDERS: ADMIT Internal Medicine Critical Care Medicine; ATTEND Internal Medicine Critical Care Medicine
PROC: 02HV33Z Insertion of Infusion Device into Superior Vena Cava, Percutaneous Approach (ICD-10-PCS; principal; 2021-05-01)
DX: G40.89 Other seizures (principal); E87.1 Hypo-osmolality and hyponatremia; E05.90 Thyrotoxicosis, unspecified without thyrotoxic crisis or storm; E11.9 Type 2 diabetes mellitus without complications; E87.6 Hypokalemia; F41.0 Panic disorder [episodic paroxysmal anxiety]; F41.9 Anxiety disorder, unspecified; G89.29 Other chronic pain; I10 Essential (primary) hypertension; T50.2X5A Adverse effect of carbonic-anhydrase inhibitors, benzothiadiazides and other diuretics, initial encounter; Y92.89 Other specified places as the place of occurrence of the external cause; Z98.84 Bariatric surgery status; Z91.040 Latex allergy status; Z79.899 Other long term (current) drug therapy
CPT/HCPCS: 36415; 36600; 70450; 71045; 80053; 80305; 80320; 81001; 82140; 82150; 82436; 82550; 82570; 82803; 82948; 83036; 83605; 83690; 83721; 83735; 83930; 83935; 84100; 84132; 84133; 84145; 84156; 84295; 84300; 84439; 84443; 85018; 85025; 92508; 92616; 93005; 94799; 97110; 97162; 97530; 99291; C9113; G0378; J1644; J1815; J1953; J2060; J2405; J3411; J3480; J3490; J7030; J7042; J7060; J7131; Q2009

== ENCOUNTER 2021-12-29 13:44 | Emergency (ER) | payer MEDICAID ==
[~2021-12-29] VITALS: Ht 160 cm; Wt 80.0 kg
[~2021-12-29 13:44] MED LIST changes: +AMIT50TA10 PO; +CELE-85 PO; +CHOL20002 PO; -CLON-528 PO; -CYCL-394 PO; -DEXL30CA3 PO; -DIPH25CA83 PO; +DOCU-22 PO; -DOCU100C40 PO; -ESCI20TA29 PO; -ESTR0.3T10 PO; +ESTR0.5T PO; +ESTR1TAB28 PO; -FAMO-128 PO; +FERR-106 PO; +HYDR-3972 PO; +KEN0.1O TOP; -LEVO100T46 PO; +LEVO100T9 PO; +LIOT5TAB10 PO; -MELO-82 PO; +METF-438 PO; -METF500T PO; +METH-797 PO; -METH60CP PO; -MOME17SP5 NS; -MONT10TA21 PO; -PHEN-786 PO; +QUET100T34 PO; -TRAM50TA2 PO
--- NOTE | 2021-12-29 15:18 | NUR ---
Pt states she is increased pain, requesting updated wait time. Explained process and inability to provide wait times. [place] and pillow provided.
--- NOTE | 2021-12-29 16:10 | NUR ---
Patient opened the door, began crying and stated, "You all left me in here and I can't move, and I'm having a lot of pain". PA at bedside
[2021-12-29] MEDS ORDERED: HYDROcodone/acetaminophen 10/325mg tab PO ONE (16:40)
[2021-12-29 17:25] VITALS: BP 135/69
--- NOTE | 2021-12-29 17:25 | NUR ---
Patient given pain medication and ankle splint place, but refused to stay for med watch, patient stated "I want to go home and my sister will be picking me up".
== END 2021-12-29 17:30 | disposition home or self-care (01) ==
LOC: ER 13:44
DX: S90.31XD Contusion of right foot, subsequent encounter (principal); D64.9 Anemia, unspecified; I10 Essential (primary) hypertension; E03.9 Hypothyroidism, unspecified; E11.9 Type 2 diabetes mellitus without complications; G89.29 Other chronic pain; F41.9 Anxiety disorder, unspecified; Z91.040 Latex allergy status; Z79.899 Other long term (current) drug therapy; Z88.1 Allergy status to other antibiotic agents; X58.XXXD Exposure to other specified factors, subsequent encounter
CPT/HCPCS: 29515; 73630; 99284

== ENCOUNTER 2022-06-20 09:53 | Emergency (ER) | payer MEDICAID ==
[~2022-06-20] VITALS: Ht 160 cm; Wt 77.0 kg
[2022-06-20 10:00] VITALS: BP 171/106
--- NOTE | 2022-06-20 10:26 | NUR ---
Pt states, "I had a covid positive test at home this morning".
[2022-06-20] MEDS ORDERED: dexamethasone sod phosphate 10mg/ml inj PO STA (12:40)
[2022-06-20] MEDS ORDERED: FLO44IN IH (12:48)
[2022-06-20] MEDS ORDERED: NIRM1TAB PO (12:48)
== END 2022-06-20 13:01 | disposition home or self-care (01) ==
LOC: ER 09:54
DX: U07.1 COVID-19 (principal); R05.9 Cough, unspecified; R06.02 Shortness of breath; I10 Essential (primary) hypertension; E11.9 Type 2 diabetes mellitus without complications; E05.90 Thyrotoxicosis, unspecified without thyrotoxic crisis or storm; G89.29 Other chronic pain; F41.9 Anxiety disorder, unspecified; Z86.2 Personal history of diseases of the blood and blood-forming organs and certain disorders involving the immune mechanism; Z98.890 Other specified postprocedural states; Z91.040 Latex allergy status; Z79.899 Other long term (current) drug therapy
CPT/HCPCS: 71045; 87635; 99284; C9803; J1100

== ENCOUNTER 2024-01-04 10:34 | Emergency (ER) | payer MEDICAID ==
[~2024-01-04] VITALS: Ht 160 cm; Wt 76.3 kg
[~2024-01-04 10:34] MED LIST changes: +CELE-127 PO; -CELE-85 PO; -ESTR0.5T PO; +ESTR0.5T36 PO; +NIRM1TAB PO
[2024-01-04] MEDS: DEXAMETHASONE 6 MG TABLET PO SCH (11:20)
[2024-01-04 12:15] VITALS: BP 159/84; PULSE 78; RESP 14; TEMP 98.1; O2SAT 97
== END 2024-01-04 12:17 | disposition home or self-care (01) ==
LOC: ER 10:34
DX: T78.40XA Allergy, unspecified, initial encounter (principal); R22.1 Localized swelling, mass and lump, neck; R49.9 Unspecified voice and resonance disorder; Z91.041 Radiographic dye allergy status; Z91.040 Latex allergy status; Z79.899 Other long term (current) drug therapy; Z79.2 Long term (current) use of antibiotics; X58.XXXA Exposure to other specified factors, initial encounter
CPT/HCPCS: 99283; J8540

== ENCOUNTER 2025-03-07 07:46 | Outpatient (CLI) | payer MEDICAID ==
--- NOTE | 2025-03-07 11:43 | RADIOLOGY REPORT ---
CLINICAL INFORMATION: CHRONIC SINUSITIS. TECHNIQUE: Axial CT images of the paranasal sinuses were obtained without contrast. Coronal and sagittal reformatted images were obtained, reviewed, and stored. One or more of the following dose reduction techniques were used: Automated exposure control. Adjustment of mA and/or kV according to patient size. CTDIvol = 54.63 mGy DLP = 783.2 mGy-cm COMPARISON: CT HEAD on DOS: 05/01/21, CT HEAD on DOS: 09/28/20 FINDINGS: The maxillary sinuses are clear. Ostiomeatal complexes are patent. Ethmoid air cells and frontal sinuses are clear. Sphenoethmoidal recesses and frontal recesses are patent. Sphenoid sinus is clear. Sinus osuna are intact with no evidence of dehiscence. Cribriform plate and lamina papyracea are intact. No mass or polyp identified in the nasal cavity. Rosalie bullosa of the right middle nasal turbinate. Mild nasal septal deviation to the left with small left-sided septal spur. IMPRESSION: 1. No significant paranasal sinus disease. 2. Rosalie bullosa of the right middle nasal turbinate. 3. Mild nasal septal deviation to the left with small left-sided septal spur.
== END 2025-03-07 23:59 | disposition home or self-care (01) ==
LOC: RAD 07:46
PROVIDERS: ATTEND Family Medicine
DX: J32.9 Chronic sinusitis, unspecified (principal); J34.2 Deviated nasal septum; M46.06 Spinal enthesopathy, lumbar region; J34.89 Other specified disorders of nose and nasal sinuses
CPT/HCPCS: 70486

== ENCOUNTER 2025-03-17 19:26 | Emergency (ER) | payer MEDICAID ==
[~2025-03-17] VITALS: Ht 160 cm; Wt 89.0 kg
[2025-03-17 19:44] VITALS: BP 145/81; PULSE 96; O2SAT 97
--- NOTE | 2025-03-17 20:19 | RADIOLOGY REPORT ---
INDICATION: fall TECHNIQUE: 2 views of the lumbar spine were obtained. COMPARISON: Lumbar CT 09/28/2020 FINDINGS: No evidence of acute vertebral fracture or compression deformity. Remote L1 compression fracture, with interval T12-L2 posterior fixation hardware placement. Up to 1 cm anterolisthesis of L4-L5 is similar to 202. Mild spondylosis of the nonsurgical levels. Right upper quadrant surgical clips. Mild vascular calcifications. IMPRESSION: 1. No acute radiographic abnormality of the lumbar spine.
--- NOTE | 2025-03-17 22:01 | Physician Documentation ---
History of Present Illness ~ Chief Complaint: Back Pain Stated Complaint: FALL X 2 DAYS AGO Time Seen by MD: 21:51 Primary Medical Doctor: deuce, called by Dr.Taggart GRAMAJO This is a 60-year-old female with a history of thoracic and lumbar spinal surger ies who presents with two days increased thoracic back pain after falling and striking her back on a counter top, patient reports that any time she moves or twists and causes the pain to become worse. Patient reports that she has taken prescribed [place] without adequate pain relief. Patient reports no new numbness or weakness in legs and no loss of bowel or bladder control. Medication Reconciliation Allergies: Coded Allergies: iodine (Unverified Allergy, Intermediate, BLISTERS, 03/17/25) latex (Verified Allergy, Unknown, 03/17/25) Uncoded Allergies: SYCAMORE (Allergy, Mild, RASH, 01/04/24) Scheduled Amitriptyline Hcl (Amitriptyline Hcl), 150 MG PO HS, (Reported) Celecoxib (Celecoxib), 1 TAB PO BID, (Reported) Cholecalciferol (Vitamin D3) (Vitamin D3), 1 CAP PO DAILY, (Reported) Docusate Sodium (Docusate Sodium), 1 CAP PO BID, (Reported) Estradiol (Estradiol), 1 MG PO DAILY, (Reported) Estradiol (Estradiol), 1 TAB PO HS, (Reported) Ferrous Sulfate (Ferrous Sulfate), 1 TAB PO BID, (Reported) Levothyroxine Sodium (Levothyroxine Sodium), 1 TAB PO DAILY, (Reported) Liothyronine Sodium (Liothyronine Sodium), 1 TAB PO DAILY, (Reported) Metformin HCl (Metformin HCl), 1 TAB PO BID, (Reported) Methocarbamol (Methocarbamol), 1 TAB PO BID, (Reported) Nirmatrelvir/Ritonavir (Paxlovid Co-Pack (Eua)), 3 EACH PO BID Quetiapine Fumarate (Quetiapine Fumarate), 1.5 TAB PO DAILY@1400, (Reported) Quetiapine Fumarate (Quetiapine Fumarate), 2 TAB PO HS, (Reported) Triamcinolone Acetonide 0.1% Crm* (Kenalog 0.1% Crm*), 1 APPLIC TOP TID, (Reported) Scheduled PRN Hydrocodone Bit/Acetaminophen (Hydrocodon-Acetaminophn 10-325 tablet), 1 TAB PO BID PRN for pain, (Reported) Past Medical History Past Medical History: Hypertension, Anemia, Diabetes, Hyperthyroidism, Chronic Pain, Anxiety, Panic Disorder Past Surgical History: gastric bypass, other Alcohol Use: None Drug Use: none Lives with: Family Lives In: Home Review of Systems ROS As stated above in the HPI, otherwise all systems are reviewed and negative. Physical Exam Physical Exam Vital Signs: Temperature: 97.6, Source: Temporal, Heart Rate: 96, Respiratory Rate: 17, BP: 145/81, Pulse Oximetry: 97, Weight: 89.000 Physical Exam VITALS: Reviewed and as above. GENERAL: Alert, nontoxic appearing, no apparent distress. RESPIRATORY: No increased work of breathing, no respiratory distress, speaking in full clear sentences BACK: Point tenderness to midline thoracolumbar spine without step-offs or crepitus Progress Results/Orders Results/Orders Orders - AMINA AGUILAR Thoracic Spine Complete (03/17/25 21:57) Ortho Orders (03/17/25 ) Completed Orders - AMINA AGUILAR Thoracic Spine Complete (03/17/25 21:57) Ketorolac Trometh 15mg/Ml Vial (Toradol (03/17/25 22:15) Medications Received in ER Medications (Trade) Dose Ordered Sig/Alejandrina Route PRN Reason Start Time Stop Time Status Last Admin Dose Admin (Toradol injection) 15 mg ONCE ONCE IM 03/17/25 22:15 03/17/25 22:16 DC 03/17/25 22:24 15 MG Vital Signs 03/17/25 03/17/25 03/17/25 19:44 22:24 23:00 Temp 97.6 97.6 Pulse 96 Resp 17 18 B/P (MAP) 145/81 Pulse Ox 97 EKG/XRAY/CT/US/VASC/MRI Bone/Soft Tissue X-Ray (Spine) #1: Additional Comment Exam: THORACIC SPINE COMPLETE INDICATION: Back Pain Post Fall TECHNIQUE: 4 views of the thoracic spine were obtained. COMPARISON: Same-day lumbar radiographs FINDINGS: Wedge compression fracture of T9 with 25 50% height loss. Redemonstrated thoracolumbar fixation hardware and T12 compression deformity, better assessed on comparison exam. No other obvious vertebral fracture. Mild multilevel spondylosis without evident listhesis. No acute finding of the imaged chest. IMPRESSION: 1. Age indeterminate T9 compression fracture, correlate for point tenderness. 2. L1 compression fracture and hardware as evaluated on the comparison exam. Electronically Signed by:CELINE HERRON MD Date & Time: 03/17/252217 Dictated by: CELINE HERRON MD Dictation date and time: 03/17/252206 I have reviewed and agree with the radiology report. I have reviewed and interpreted the imaging as: Compression fracture in the thoracic spine observed Bone/Soft Tissue X-Ray (Spine) #2: Additional Comment Exam: LUMBAR SPINE LIMITED INDICATION: fall TECHNIQUE: 2 views of the lumbar spine were obtained. COMPARISON: Lumbar CT 09/28/2020 FINDINGS: No evidence of acute vertebral fracture or compression deformity. Remote L1 compression fracture, with interval T12-L2 posterior fixation hardware placement. Up to 1 cm anterolisthesis of L4-L5 is similar to 2020. Mild spondylo sis of the nonsurgical levels. Right upper quadrant surgical clips. Mild vascular calcifications. IMPRESSION: 1. No acute radiographic abnormality of the lumbar spine. Electronically Signed by:CELINE HERRON MD Date & Time: 03/17/252015 Dictated by: CELINE HERRON MD Dictation date and time: 03/17/252015 I have reviewed and agree with the radiology report. I have reviewed and interpreted the imaging as: No vertebral fracture observed Medical Decision Making Additional information obtaine: N/A Findings This is a 60-year-old female who presented with rest back pain after a mechanical fall striking her back on a kitchen counter, patient reported pain was worse with movement. Imaging demonstrated age indeterminate compression fracture of T9 vertebrae along with other chronic vertebral fractures and orthopedic hardware, patient responded well to medication in the emergency d epartment in a T a slow brace was placed which patient reported significant improvement in symptoms. It was reassuring patient reported no new weakness or numbness in legs, no saddle paresthesias, and no loss of bowel or bladder control. In shared decision-making with the patient she will be discharged to follow up with the primary care provider for further management of back pain. Patient provided careful return to care precautions, follow up instructions, and home care instructions. Differential Dx:Considerations: Appendicitis, DJD, Fracture, Musculoskeletal pain, Pancreatitis, Pyelonephritis, Strain, Urolithiasis, Urinary tract infection Departure Time of Disposition: 22:59 Disposition: 01 HOME / SELF CARE / HOMELESS Impression: Primary Impression: Acute thoracic back pain Qualified Codes: M54.6 - Pain in thoracic spine Condition: Improved Discharge Instructions: Acute Back Pain, Adult Additional Instructions: Take your previously prescribed medications for back pain. Please use the brace for comfort. There was an age did determinate compression fracture of your T9 vertebrae, please follow up with your primary care provider for further management of this. Please follow up with your primary care provider in the next few days. Please return to the emergency department for any new or worsen ing concerning symptoms including but not limited to new or worsening numbness or tingling in her legs, or if you lose control of your bowel or bladder. Referrals: NO PRIMARY CARE PROVIDER (PCP) Education Educated: Patient Educated regarding: diagnosis, treatment, prognosis, need for follow up Signature Scribe Signature: No scribe Attestation: The note accurately reflects work and decisions made by me.HUMA Montes 03/18/25 01:12 AMINA AGUILAR Mar 17, 2025 22:01
--- NOTE | 2025-03-17 22:21 | RADIOLOGY REPORT ---
INDICATION: Back Pain Post Fall TECHNIQUE: 4 views of the thoracic spine were obtained. COMPARISON: Same-day lumbar radiographs FINDINGS: Wedge compression fracture of T9 with 25 50% height loss. Redemonstrated thoracolumbar fixation hardware and T12 compression deformity, better assessed on comparison exam. No other obvious vertebral fracture. Mild multilevel spondylosis without evident listhesis. No acute finding of the imaged chest. IMPRESSION: 1. Age indeterminate T9 compression fracture, correlate for point tenderness. 2. L1 compression fracture and hardware as evaluated on the comparison exam.
[2025-03-17 22:24] VITALS: RESP 18
[2025-03-17] MEDS: ketorolac trometh 15mg/ml vial 15 MG/ML ML IM ONE (22:24)
[2025-03-17 23:00] VITALS: TEMP 97.6
== END 2025-03-17 23:07 | disposition home or self-care (01) ==
LOC: ER 19:27
DX: M54.6 Pain in thoracic spine (principal); E11.9 Type 2 diabetes mellitus without complications; I10 Essential (primary) hypertension; F41.9 Anxiety disorder, unspecified; Z88.8 Allergy status to other drugs, medicaments and biological substances; Z91.040 Latex allergy status; Z98.84 Bariatric surgery status; W19.XXXA Unspecified fall, initial encounter; Y93.89 Activity, other specified; Y92.89 Other specified places as the place of occurrence of the external cause; Y99.8 Other external cause status
CPT/HCPCS: 72074; 72100; 96372; 99284; J1885

== ENCOUNTER 2025-04-27 09:12 | Emergency (ER) | payer MEDICAID ==
[~2025-04-27] VITALS: Ht 157.5 cm; Wt 86.9 kg
[2025-04-27 09:50] LABS: MEAN PLATELET VOLUME 6.6 FL (7.4-10.4); RED CELL DISTRIBUTION WIDTH 14.6 % (11.5-14.5)
[2025-04-27 10:18] LABS: CREATININE 0.88 MG/DL (0.40-0.90); TOTAL CARBON DIOXIDE 21.7 MMOL/L (24-32); eCRCL 55 ML/MIN; eGFR 66 ML/MIN
[2025-04-27 10:28] VITALS: BP 141/80; PULSE 74; RESP 14; TEMP 98.5; O2SAT 96
[2025-04-27 10:40] LABS: LEUKOCYTE ESTERASE ,URINE NEGATIVE (Neg); NITRITES, URINE NEGATIVE (Neg); OCCULT BLOOD,URINE TRACE-INTACT (Neg)
[2025-04-27 10:45] LABS: UA COLLECTION TYPE CLN CATCH MIDSTREAM
[2025-04-27 10:48] LABS: SQUAMOUS EPITHELIAL CELL,UR MANY /LPF (FEW)
--- NOTE | 2025-04-27 11:23 | Physician Documentation ---
History of Present Illness General Chief Complaint: Flank Pain Stated Complaint: ABNORMAL LABS Time Seen by MD: 09:31 Primary Medical Doctor: Doctor Francis CALDERÓN Mode of Arrival: Ambulatory History of Present Illness Initial Comments 89-year-old female with PMH of COPD, anxiety/depression presented to the ED in view of abnormal labs that were done on 04/20. Per the patient's labs that were done outside on the above-mentioned specified date patient had a sodium level 12 8 and low chloride with elevated levels of B12 and B1. Patient presented to the ED in view of these abnormal labs and having pain in the right lumbar region. Patient also says she has a rock like sensation in her belly but does not tenderness or pain and feels puffy. Patient denies fever or chills. Patient also has on and off palpitations that she can not specifically tell the duration of sustained palpitations. Patient currently does not have any active palpitations and her EKG is normal sinus rhythm. Patient denies similar history in the past. Patient does not have burning micturition or increased urinary frequency. Medication Reconciliation Allergies: Coded Allergies: iodine (Unverified Allergy, Intermediate, BLISTERS, 03/17/25) latex (Verified Allergy, Unknown, 03/17/25) Uncoded Allergies: SYCAMORE (Allergy, Mild, RASH, 01/04/24) Scheduled Amitriptyline Hcl (Amitriptyline Hcl), 150 MG PO HS, (Reported) Celecoxib (Celecoxib), 1 TAB PO BID, (Reported) Cholecalciferol (Vitamin D3) (Vitamin D3), 1 CAP PO DAILY, (Reported) Docusate Sodium (Docusate Sodium), 1 CAP PO BID, (Reported) Estradiol (Estradiol), 1 MG PO DAILY, (Reported) Estradiol (Estradiol), 1 TAB PO HS, (Reported) Ferrous Sulfate (Ferrous Sulfate), 1 TAB PO BID, (Reported) Levothyroxine Sodium (Levothyroxine Sodium), 1 TAB PO DAILY, (Reported) Liothyronine Sodium (Liothyronine Sodium), 1 TAB PO DAILY, (Reported) Metformin HCl (Metformin HCl), 1 TAB PO BID, (Reported) Methocarbamol (Methocarbamol), 1 TAB PO BID, (Reported) Nirmatrelvir/Ritonavir (Paxlovid Co-Pack (Eua)), 3 EACH PO BID Quetiapine Fumarate (Quetiapine Fumarate), 1.5 TAB PO DAILY@1400, (Reported) Quetiapine Fumarate (Quetiapine Fumarate), 2 TAB PO HS, (Reported) Triamcinolone Acetonide 0.1% Crm* (Kenalog 0.1% Crm*), 1 APPLIC TOP TID, (Reported) Scheduled PRN Hydrocodone Bit/Acetaminophen (Hydrocodon-Acetaminophn 10-325 tablet), 1 TAB PO BID PRN for pain, (Reported) Past Medical History Past Medical History: Hypertension, Anemia, Diabetes, Hyperthyroidism, Chronic Pain, Anxiety, Panic Disorder Other Past Medical History: COPD, anxiety, depression Past Surgical History: gastric bypass, other Other Past Surgical History: Orthopedic surgeries Alcohol Use: None Drug Use: none Lives with: Family Lives In: Home Physical Exam Physical Exam Vital Signs: Temperature: 98.5, Source: Oral, Heart Rate: 74, Respiratory Rate: 14, BP: 141/80, Pulse Oximetry: 96, Weight: 86.900 Oxygen Flow Rate: 0 Physical Exam General: Alert, awake, oriented, not in acute distress HEENT: PERRLA, no icterus, pallor, lymphadenopathy, carotid bruit Respiratory system: Bilateral vesicular breath sounds heard, no adventitious breath sounds CVS: S1-S2 heard, grade 3/6 HSM murmur present in the mitral area with radiation to the tricuspid area GI: Tenderness in the right lumbar region, Soft, no organomegaly, no guarding/rigidity, bowel sounds present Neuro: No focal neurological deficits present Mental status exam: alert and consciousness, orientation, memory, speech - Cranial nerve test: Cranial nerves 2-12 intact - Motor system: Nutrition, Tone 3+, Power 5/5, no involuntary movements - Sensory system: Intact - Reflex testing: Biceps, triceps and knee reflexes 2+ - Cerebellar: Normal Extremities: No edema cyanosis clubbing/deformities Skin: Warm and dry Progress Results/Orders Results/Orders Orders - SAV ARNOLD, RES [facility] (04/27/25 09:40) Ultrasound Kidney Non Vasc (04/27/25 10:46) Vital Signs 04/27/25 04/27/25 04/27/25 09:19 09:46 10:28 Temp 96.9 98.5 Pulse 85 74 Resp 18 14 14 B/P (MAP) 148/78 141/80 (100) Pulse Ox 99 96 O2 Flow Rate 0 0 Laboratory Tests Test 04/27/25 09:42 04/27/25 10:05 White Blood Count 6.3 Red Blood Count 3.82 L Hemoglobin 11.5 L Hematocrit 34.2 L Mean Corpuscular Volume 89.5 Mean Corpuscular Hemoglobin 30.1 Mean Corpuscular Hemoglobin Concent 33.6 Red Cell Distribution Width 14.6 H Platelet Count 387 Mean Platelet Volume 6.6 L Neutrophils (%) (Auto) 70.2 Lymphocytes (%) (Auto) 14.7 L Monocytes (%) (Auto) 9.7 Eosinophils (%) (Auto) 4.2 Basophils (%) (Auto) 1.2 H Neutrophils # (Auto) 4.4 Lymphocytes # (Auto) 0.9 L Monocytes # (Auto) 0.6 Eosinophils # (Auto) 0.3 Basophils # (Auto) 0.1 CBC Comment Sodium Level 133 L Potassium Level 4.1 Chloride Level 103 Carbon Dioxide Level 21.7 L Anion Gap 8 Blood Urea Nitrogen 12 Creatinine 0.88 Estimated GFR/1.73 m2 66 BUN/Creatinine Ratio 13.6 Glucose Level 80 Calcium Level 8.0 L Total Bilirubin 0.2 Aspartate Amino Transf (AST/SGOT) 20 Alanine Aminotransferase (ALT/SGPT) 17 Alkaline Phosphatase 126 H Total Protein 6.9 Albumin 3.3 L Globulin 3.6 Albumin/Globulin Ratio 0.9 L Lipase 41 Chemistry Comments Urine Specimen Description Cln catch midstream Urine Color Yellow Urine Clarity Slightly cloudy Urine pH 5.5 Urine Specific [place] 1.010 Urine Protein Negative Urine Glucose (UA) Negative Urine Ketones Negative Urine Occult Blood Trace-intact Urine Nitrite Negative Urine Bilirubin Negative Urine Urobilinogen 0.2 Urine Leukocyte Esterase Negative Urine RBC None seen Urine WBC 0-4 Urine Squamous Epithelial Cells Many Urine Bacteria 1+ Urine Culture Indicated Not ind Volume Urine Centrifuged 10 ml Urine Comment Medical Decision Making Additional information obtaine: N/A Findings 60-year-old female with history of COPD and anxiety presented to the ED in view of right lumbar pain and no associated fever or chills or burning micturition. Patient is being evaluated for electrolyte abnormalities and imaging to see if there is any right renal stones. On further labs patient was found to have quite normal labs with renal ultrasound revealing a subcentimeter stone in the right kidney with with the presence of hydronephrosis Differential Diagnosis Renal calculi, UTI, mesenteric ischemia, hyponatremia, electrolyte abnormality Departure Disposition: 01 HOME / SELF CARE / HOMELESS Impression: Primary Impression: Calculus of kidney Additional Instructions: Follow up with primary care and have a referral done to Urology in view of right renal calculus. Referrals: NO PRIMARY CARE PROVIDER (PCP) Signature Scribe Signature: None Attestation: Document created by the resident, reviewed and adjusted by the ED physician. SAV ARNOLD, RES Apr 27, 2025 11:23
[2025-04-27] MEDS ORDERED: HYDR-3973 PO (11:25)
--- NOTE | 2025-04-27 11:38 | RADIOLOGY REPORT ---
INDICATION: renal US TECHNIQUE: Multiple real-time sonographic images of the kidneys and bladder were obtained. COMPARISON: None FINDINGS: RIGHT kidney measures 10.2 cm in length. Mild right renal pelvic fullness. LEFT kidney measures 9.8 cm in length. No hydronephrosis. No large intraluminal masses are seen in the bladder. IMPRESSION: 1. Mild right renal pelvic fullness.
== END 2025-04-27 11:54 | disposition home or self-care (01) ==
LOC: ER 09:13
DX: N20.0 Calculus of kidney (principal); E11.9 Type 2 diabetes mellitus without complications; G89.29 Other chronic pain; I10 Essential (primary) hypertension; J44.9 Chronic obstructive pulmonary disease, unspecified; F41.9 Anxiety disorder, unspecified; F32.A Depression, unspecified; D64.9 Anemia, unspecified; Z91.040 Latex allergy status; Z88.8 Allergy status to other drugs, medicaments and biological substances; Z79.899 Other long term (current) drug therapy; Z79.84 Long term (current) use of oral hypoglycemic drugs; Z98.890 Other specified postprocedural states
CPT/HCPCS: 36415; 76770; 80053; 81001; 83690; 85025; 99284